=== PATIENT | female | born 1975 | race Caucasian/White ===

== ENCOUNTER 2020-04-19 14:49 | Emergency (ER) | payer OTHER ==
[~2020-04-19] VITALS: Ht 172.7 cm; Wt 86.2 kg
[2020-04-19 14:57] VITALS: BP 116/72
--- NOTE | 2020-04-19 15:54 | NUR ---
covid swab done and sent to lab
--- NOTE | 2020-04-19 15:56 | NUR ---
Patient discharged to home in stable condition. Written and verbal after care instructions given. Patient verbalizes understanding of instruction. Pt ambulatory with a steady gait
--- NOTE | 2020-04-19 15:57 | NUR ---
pt telephone number: [phone] and [phone]
== END 2020-04-19 16:07 | disposition home or self-care (01) ==
LOC: ER 14:53
DX: J06.9 Acute upper respiratory infection, unspecified (principal); Z20.828 Contact with and (suspected) exposure to other viral communicable diseases; F17.210 Nicotine dependence, cigarettes, uncomplicated; G89.29 Other chronic pain; M54.9 Dorsalgia, unspecified
CPT/HCPCS: 99283; C9803; U0003

== ENCOUNTER 2020-09-14 13:59 | Emergency (ER) | payer OTHER ==
[~2020-09-14] VITALS: Ht 154.9 cm; Wt 93.4 kg
--- NOTE | 2020-09-14 14:11 | NUR ---
CALLED TO TRIAGE NO ANSWER.
[2020-09-14 14:20] VITALS: BP 129/81
[2020-09-14] MEDS ORDERED: IBUP-1957 PO (14:23)
--- NOTE | 2020-09-14 15:15 | NUR ---
Patient discharged to home in stable condition. Written and verbal after care instructions given. Patient verbalizes understanding of instruction.
== END 2020-09-14 15:16 | disposition home or self-care (01) ==
LOC: ER 14:02
DX: M26.69 Other specified disorders of temporomandibular joint (principal); M54.9 Dorsalgia, unspecified; F32.9 Major depressive disorder, single episode, unspecified; Z79.899 Other long term (current) drug therapy

== ENCOUNTER 2020-11-21 15:24 | Emergency (ER) | payer OTHER ==
[~2020-11-21] VITALS: Ht 172.7 cm; Wt 97.5 kg
[~2020-11-21 15:24] MED LIST: IBUP-1957 PO
[2020-11-21 15:32] VITALS: BP 117/69
--- NOTE | 2020-11-21 15:45 | NUR ---
AT BEDSIDE FOR EVAL.
[2020-11-21] MEDS ORDERED: CIPR7.5D LEFT EAR (15:55)
--- NOTE | 2020-11-21 16:22 | NUR ---
Patient discharged to home in stable condition. Written and verbal after care instructions given. Patient verbalizes understanding of instruction.
== END 2020-11-21 16:23 | disposition home or self-care (01) ==
LOC: ER 15:28
DX: H60.92 Unspecified otitis externa, left ear (principal); G89.29 Other chronic pain; F32.9 Major depressive disorder, single episode, unspecified

== ENCOUNTER 2021-02-11 18:48 | Emergency (ER) | payer OTHER ==
[~2021-02-11] VITALS: Ht 172.7 cm; Wt 90.7 kg
[~2021-02-11 18:48] MED LIST changes: +CIPR7.5D9 LEFT EAR
[2021-02-11 19:00] VITALS: BP 114/69
[2021-02-11] MEDS ORDERED: DIPH25CA83 PO (19:14)
[2021-02-11] MEDS ORDERED: TRIA15CR4 TP (19:14)
== END 2021-02-11 19:32 | disposition home or self-care (01) ==
LOC: ER 18:48
DX: L24.9 Irritant contact dermatitis, unspecified cause (principal); F32.9 Major depressive disorder, single episode, unspecified; Z79.899 Other long term (current) drug therapy

== ENCOUNTER 2022-05-24 16:30 | Emergency (ER) | payer OTHER ==
[~2022-05-24] VITALS: Ht 172.7 cm; Wt 90.7 kg
[~2022-05-24 16:30] MED LIST changes: +DIPH25CA83 PO; +TRIA15CR4 TP
[2022-05-24 17:02] VITALS: BP 135/74
--- NOTE | 2022-05-24 18:01 | NUR ---
TO ER CHAIR FOR EVAL,NO APPARENT CHANGE IN CONDITION
[2022-05-24] MEDS ORDERED: ACETAMINOPHEN 325 MG TABLET PO ONE (18:35)
[2022-05-24] MEDS ORDERED: NAPR-1009 PO (19:26)
[2022-05-24] MEDS ORDERED: ACETAMINOPHEN ES 500 MG TABLET ONE (19:31)
--- NOTE | 2022-05-24 19:37 | NUR ---
Patient discharged to home in stable condition. Written and verbal after care instructions given. Patient verbalizes understanding of instruction.
== END 2022-05-24 19:38 | disposition home or self-care (01) ==
LOC: ER 16:32
DX: S93.401A Sprain of unspecified ligament of right ankle, initial encounter (principal); F32.A Depression, unspecified; G89.29 Other chronic pain; Z79.899 Other long term (current) drug therapy; X50.1XXA Overexertion from prolonged static or awkward postures, initial encounter; Y93.89 Activity, other specified; Y92.89 Other specified places as the place of occurrence of the external cause; Y99.8 Other external cause status
CPT/HCPCS: 73610-TC; 73630-TC

== ENCOUNTER 2022-08-30 04:28 | Emergency (ER) | payer OTHER ==
[~2022-08-30] VITALS: Ht 172.7 cm; Wt 90.7 kg
[~2022-08-30 04:28] MED LIST changes: +NAPR-1009 PO
[2022-08-30] MEDS ORDERED: KETOROLAC TROMETHAMINE INJ 30 MG/ML VIAL ONE (04:42)
--- NOTE | 2022-08-30 04:42 | NUR ---
RITESH 878 FROM HOME FOR C/O LOWER BACK PAIN S/P BENDING OVER TO HELP HER CHILD. PLACED IN BED 9 ON MONITOR AND PULSE OX. AWAITING MD FOR EVAL AND ORDERS.
[2022-08-30] MEDS ORDERED: CYCLOBENZAPRINE 10 MG TABLET ONE (04:43)
[2022-08-30] MEDS: KETOROLAC TROMETHAMINE INJ 60 MG/2 ML VIAL IM ONE (04:56)
[2022-08-30] MEDS: CYCLOBENZAPRINE 10 MG TABLET PO ONE (04:56)
[2022-08-30] MEDS ORDERED: NAPR-1164 PO (05:49)
[2022-08-30] MEDS ORDERED: CYCL5TAB PO (05:49)
[2022-08-30] MEDS ORDERED: LIDO30AD10 TP (05:49)
[2022-08-30] MEDS ORDERED: MORPHINE SULFATE INJ 4 MG/ML DISP.SYRIN ONE (06:23)
[2022-08-30] MEDS: MORPHINE SULFATE INJ 2 MG/ML DISP.SYRIN IM ONE (06:26)
--- NOTE | 2022-08-30 06:56 | NUR ---
PT PENDING DISCHARGE.
--- NOTE | 2022-08-30 08:15 | NUR ---
estbalished iv line 20 g left hand .
[2022-08-30] MEDS: ONDANSETRON HCL/PF 4 MG/2 ML VIAL IV ONE (08:30)
[2022-08-30] MEDS: MORPHINE SULFATE INJ 2 MG/ML DISP.SYRIN IV ONE (08:44)
--- NOTE | 2022-08-30 08:46 | NUR ---
IV removed. Catheter intact and site benign. Pressure and 4x4 applied to site. No bleeding noted.
[2022-08-30 08:47] VITALS: BP 135/81
--- NOTE | 2022-08-30 09:13 | NUR ---
Patient discharged to home in stable condition. Written and verbal after care instructions given. Patient verbalizes understanding of instruction.
== END 2022-08-30 09:14 | disposition home or self-care (01) ==
LOC: ER 04:29
DX: G89.29 Other chronic pain (principal); M54.50 Low back pain, unspecified; F32.A Depression, unspecified; Z79.899 Other long term (current) drug therapy
CPT/HCPCS: 99284; 96374; 96375; 96372 ×2; J2270 ×2; J1885; J2405